=== PATIENT | male | born 1960 | race Caucasian/White ===

== ENCOUNTER 2018-07-02 14:19 | Inpatient (IN) | payer MEDICAID ==
[~2018-07-02] VITALS: Ht 165.1 cm; Wt 93.2 kg
[2018-07-02] MEDS ORDERED: TYLENOL325 MG PO (15:03)
[2018-07-02] MEDS ORDERED: AUGMENTIN 875-1 EACH PO (15:05)
[2018-07-02] MEDS ORDERED: ASPIRIN81 M2 PO (15:07)
[2018-07-02] MEDS ORDERED: PLAVIX 75 MG TA75 MG PO (15:08)
[2018-07-02] MEDS ORDERED: TRICOR145 MG PO (15:11)
[2018-07-02] MEDS ORDERED: ZETIA10 MG PO (15:11)
[2018-07-02] MEDS ORDERED: NORCO 5-325 TA1 EACH PO (15:15)
[2018-07-02] MEDS ORDERED: LOPRESSOR100 M1 PO (15:28)
[2018-07-02] MEDS ORDERED: PRILOSEC 20 MG20 MG PO (15:30)
[2018-07-02 17:13] VITALS: BP 114/77
--- NOTE | 2018-07-02 18:35 | NUR ---
PT. ARRIVED PER W/C MELIZA AT 1713 TO REHAB UNIT [id number]. ALERT ORIENTED BUT DOES HAVE SOME COGNITION ISSUES HX OF VENTRICULOPERITONEAL SHUNT. BLIND RT. EYE AFTER SHUNT PLACEMENT PER PARENTS. REPORT. 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 HAS A CARDIAC HUGGER VEST ON. STERNAL INCISION C/D/I. PT. TRANSFERS WITH 1 ASSIST G BELT WALKER BUT IS ON STERNAL PRECAUTIONS AND NEEDS REMINDERS TO [place] WITH TRANSFERS NOT USE ARMS TO PUSH UP. PLEASANT COOPERATIVE. ABLE TO ANSWER MOST OF THE QUESTIONS PARENTS WITH HIM IN ROOM. ORIENTED TO ROOM AND REHAB ROUTINE. SUPPER HERE AND PT. IS ABLE TO FEED SELF. CHAIR ALARM PLACED IN CHAIR AND CALL LIGHT EXPLAINED.
[2018-07-02 20:00] VITALS: BP 126/77
[2018-07-03 04:12] LABS: HEMATOCRIT 29.6 % (42.0-52.0); HEMOGLOBIN 10.1 gm/dL (14.0-18.0); MCH 31.7 pg (26.0-34.0); MCHC 34.1 g/dL (28.0-37.0); MCV 92.8 fL (80.0-100.0); MPV 6.9 fl. (7.2-11.1); RBC 3.18 mil/uL (4.50-6.00); RDW-CV 14.7 % (10.5-14.5); WBC 10.5 thou/uL (4.0-11.0)
[2018-07-03 04:31] LABS: CALCIUM 9.6 mg/dL (8.5-10.1); CREATININE 0.9 mg/dL (0.6-1.3); POTASSIUM 3.8 mmol/L (3.5-5.1)
--- NOTE | 2018-07-03 05:56 | NUR ---
ASSUMED CARE AT 1920. S/P CABG X 3. ALERT AND ORIENTED X 2. HAS BEEN CONFUSED AND FORGETFUL AT TIMES. IMPULSIVE. PT EDUCATED ABOUT NOT GETTING UP BY HIMSELF BUT WOULD DO SO ANYWAYS. NEEDS REMINDING TO ABOUT STERNAL PRECAUTIONS. MIDSTERNAL INCISION IS WELL APPROXIMATED AND LIQUID LOADER. HAS HEART HUGGER BUT REFUSED TO WEAR IT WHEN IN BED. MIN ASSIST WITH GAIT BELT AND WALKER. URINAL AT BEDSIDE AND PT INSTRUCTED TO USE BUT PT HAD URINARY INCONTINENCE ALL NIGHT. SLEPT LITTLE OFF AND ON. CALL LIGHT IN REACH AND BED ALARM ON.
[2018-07-03 07:37] VITALS: BP 122/79
--- NOTE | 2018-07-03 14:15 | NUR ---
PATIENT IS ALERT AND ORIENTED X 2-3, HE ATE IN THE MAIN DINNING AREA WITH HIS PARENTS. CONT. TO PARTICIPATE IN PT/OT. DENIES COMPLAINTS OF PAIN OR DISCOMFORT. NO SIGN OF DISTRESS. CONT. WITH CURRENT PLAN OF CARE.
--- NOTE | 2018-07-03 16:57 | NUR ---
SW met with pt to complete initial assessment, introduce self, and SW role on inpt rehab unit. Pt said he does not understand why he "has to be here". SW explained purpose of inpt rehab and therapies; pt said he feels he is ready to go home. Pt said that he was independent and did not need cane or RW or anything. Pt wants to dc ward. Pt said his parents visited him today but he did not understand why "maybe they want to keep" pt here. SW to continue to follow to assist with safe dc planning.
--- NOTE | 2018-07-03 18:38 | NUR ---
ALERT AND ORIENTED X 2-3. MOVED TO 321 WHICH IS CLOSER TO THE NURSING STATION. EARLIER TODAY PATIENT WAS UP AD SANDY IN ROOM. ENCOURAGE USE OF CALL LIGHT. PATIENT ASKED DR ROCHA TO DISCHARGE HIM. DR ROCHA TOLD PATIENT WOULD DISCUSS IN TEAM MEETING TOMORROW.
[2018-07-03 19:00] VITALS: BP 104/64
--- NOTE | 2018-07-03 19:40 | NUR ---
SITTING UP IN RECLINER WATCHING WRESTLING ON TV. DENIES DISCOMFORT. DECLINED OFFER OF A SNACK. STERNAL INCISION DIVISION CONTROLLER, WELL APPROXIMATED.
--- NOTE | 2018-07-04 05:22 | NUR ---
RESTED QUIETLY. NO COMPLAINTS VOICED. INCONTINENT OF URINE. GALI CARE GIVEN. HOURLY ROUNDING IN PROGRESS.
[2018-07-04 08:00] VITALS: BP 125/81
--- NOTE | 2018-07-04 12:56 | NUR ---
Nutrition: Pt admitted CABG X3. RD spoke with pt's parents yday about heart healthy diet. Mother stated she would be cooking for the pt temproarily while he stays with them "after this heart attack." +BM yday. Wt: 220#. Meal intake is fair. H/o DM, CAD, OBE, HTN, GERD. CHO controlled diet. Low risk. Will follow weekly.
--- NOTE | 2018-07-04 15:55 | NUR ---
SW met with pt and pt parents to review team conference summary and plan for pt to remain on rehab unit with team to reassess pt length of stay during team conference next Monday. Pt was disappointed but pt parents encouraged pt to continue therapies. Pt parents stated that pt would stay with them a couple of weeks at dc. SW to continue to follow to assist with safe dc planning.
--- NOTE | 2018-07-04 16:31 | NUR ---
PATIENT UP WITH ROLLING WALKER, SBA, DOES REQUIRE LIMITED ASSIST WITH STANDING. HE GOES TO THE MAIN DINE AREA FOR ALL MEALS. PARENTS ARE HERE NOW VISITING. PATIENT IS WITHOUT COMPLAINTS. NO SIGN OF DISTRESS. CONT. WITH CURRENT PLAN OF CARE AT THIS TIME.
[2018-07-04 19:00] VITALS: BP 129/78
--- NOTE | 2018-07-04 20:05 | NUR ---
SITTING UP IN WHEELCHAIR. DENIES DISCOMFORT. DECLINED OFFER OF A SNACK. COMPLAINED OF BEING TIRED AND TRANSFERRED TO BED WITH SBA, GAITBELT, WALKER, STERNAL PRECAUTIONS AND CUEING. HAS BRIEFS ON.
--- NOTE | 2018-07-05 06:38 | NUR ---
RESTED QUIETLY. NO COMPLAINTS VOICED. WHEN WANTS ASSIST WITH URINAL YELLS OUT FOR HELP INSTEAD OF USING THE CALL LIGHT. EDUCATED PATIENT ON USE OF THE CALL LIGHT AT BEDTIME TO NO AVAIL. HOURLY ROUNDING IN PROGRESS.
[2018-07-05 08:00] VITALS: BP 128/69
--- NOTE | 2018-07-05 15:05 | NUR ---
ASSUMMED CARE OF PT AT 0730, PT ALERT AND ORIENTED, PT TRANSFERS WITH MIN TO SBA GB WALKER CUEING, PT COMPLAINS OF CHEST ACHINESS AROUND INCISION SITE, MEDICATED PER ORDER, INCISION C/D/I, PT VOIDS PER URINAL, AMBULATED TO DININGROOM FOR LUNCH, TAKING FOOD AND FLUIDS WELL, PARTICIPATED IN ALL THERAPIES,STERNAL PRECAUTIONS MAINTAINED, HOURLY ROUNDING COMPLETED, ASSESSMENT COMPLETE, WILL CONTINUE TO MONITOR.
[2018-07-05 19:18] VITALS: BP 137/80
[2018-07-05 21:00] VITALS: BP 162/53
[2018-07-06 04:11] LABS: CALCIUM 9.3 mg/dL (8.5-10.1); CREATININE 0.9 mg/dL (0.6-1.3); POTASSIUM 4.2 mmol/L (3.5-5.1)
--- NOTE | 2018-07-06 05:00 | NUR ---
ASSUMED CARE OF PT AT 1900 PT ALERT AND ORIENTED VSS. PT CONTINUES ON STERNAL PRECAUTIONS. PT AMBULATED TO THE BATHROOM WITH SUPERVISION AND GB AND WALKER. PT DENIED ANY COMPLAINTS AND SLEPT THROUGH THE NIGHT. WILL CONTINUE PLAN OF CARE.
[2018-07-06 07:15] VITALS: BP 126/76
--- NOTE | 2018-07-06 15:45 | NUR ---
ASSUMED CARE AT 0730. ALERT ORIENTED PLEASANT COOPERATIVE. HX OF CABG X 3. STERNAL PRECAUTIONS IN PLACE INCISION HEALING. MEDICATED X 1 WITH TYLENOL WITH A.M. MEDS BEFORE THERAPIES. TRANSFERS WITH SBA G BELT WEARS CARDIOHUGGER PARTICIPATING IN THERAPIES THROUGHOUT THE DAY. FEEDS SELF TAKES MEDS WITHOUT DIFFICULTY APPETITE GOOD. SITTING UP IN RECLINER WHEN NOT WITH THERAPIES, HAS CHAIR ALARM FOR SAFETY.
[2018-07-06 19:50] VITALS: BP 116/74
--- NOTE | 2018-07-06 20:30 | NUR ---
RESTING IN BED. COMPLAINING OF A PERSISTENT COUGH AND A SORE THROAT. STERNAL INCISION HEALING, MING. TOOK MEDICATIONS WHOLE WITH WATER.
--- NOTE | 2018-07-07 05:39 | NUR ---
PATIENT GIVEN COUGH SYRUP FOR COMPLAINT OF COUGHING WITH GOOD RESULTS. NO FURTHER COMPLAINT OF A SORE THROAT. SLEPT SOUNDLY FOR A FEW HOURS AND THEN WAS AWAKE FOR MOST OF THE NIGHT. VOIDED ON THE FLOOR. REORIENTED THE PATIENT ON THE USE OF THE CALL LIGHT AND TO CALL FOR ASSIST WITH THE URINAL. PATIENT STILL DOESN'T USE THE CALL LIGHT. YELLED OUT LATER IN THE SHIFT FOR ASSIST WITH THE URINAL. HOURLY ROUNDING IN PROGRESS.
[2018-07-07 07:15] VITALS: BP 127/78
--- NOTE | 2018-07-07 16:14 | NUR ---
ASSUMMED CARE OF PT AT 0730, PT ALERT AND ORIENTED, TRANSFERS WITH SBA,GB WALKER, NEEDS CUEING AND TO REMEMBER STERNAL PRECAUTIONS, INCISION C/D/I, TAKING FOOD AND FLUIDS WELL, DENIES PAIN, AMBULATED TO DININGROOM FOR LUNCH, PT STATES HE HAD A BM YESTERDAY AND REFUSED HIS COLACE TODAY, VOIDS PER TOILET, PARTICIPATED IN ALL THERAPIES, HOURLY ROUNDING COMPLETED, ASSESSMENT COMPLETE, WILL CONTINUE TO MONITOR.
--- NOTE | 2018-07-07 19:40 | NUR ---
SITTING UP IN RECLINER WATCHING TV. AMBULATED TO THE BATHROOM WITH SBA, GAITBELT, WALKER. DENIES DISCOMFORT. TOOK MEDICATIONS WHOLE WITH WATER.
[2018-07-07 20:00] VITALS: BP 131/83
--- NOTE | 2018-07-08 05:57 | NUR ---
RESTED ON/OFF. WOKE UP AND WASHED TV FOR A FEW HOURS AND THEN FELL BACK TO SLEEP. USED CALL LIGHT APPROPRIATLE X 2 TO CALL STAFF TO COME EMPTY HIS URINAL. HOURLY ROUNDING IN PROGRESS.
[2018-07-08 08:00] VITALS: BP 133/84; BP 133/89
--- NOTE | 2018-07-08 15:26 | NUR ---
ASSUMMED CARE OF PT AT 0730, PT ALERT AND ORIENTED, SLOW AT TIMES, TRANSFERS WITH SBA GB WALKER, NEEDS CUEING TO MAINTAIN STERNAL PRECAUTIONS WHEN GOING FROM SIT TO STAND, AMBULATED TO DININGROOM FOR LUNCH, PT DENIES PAIN, INCISION C/D/I, TAKING FOOD AND FLUIDS WELL, DID PARTIAL BATH, GROOMING AT SINK, HOURLY ROUNDING COMPLETE, ASSESSMENT COMPLETE, WILL CONTINUE TO MONITOR.
[2018-07-08 19:00] VITALS: BP 120/80
--- NOTE | 2018-07-08 19:45 | NUR ---
SITTING UP IN RECLINER WATCHING TV. DENIES DISCOMFORT. TRANSFERRED FROM CHAIR TO BED WITH SBA, GAITBELT, WALKER, CUES. TOOK MEDICATIONS WHOLE WITH WATER.
--- NOTE | 2018-07-09 05:23 | NUR ---
RESTED QUIETLY. GAVE TYLENOL AT 2144 FOR COMPLAINT OF SORE THROAT WITH SOME RELIEF. UP TO THE BATHROOM AT 2330 AND HAD A LARGE FORMED BM. HOURLY ROUNDING IN PROGRESS.
[2018-07-09 08:00] VITALS: BP 127/83
[2018-07-09 14:09] LABS: CALCIUM 9.3 mg/dL (8.5-10.1); MAGNESIUM 1.5 mg/dL (1.8-2.4); POTASSIUM 4.2 mmol/L (3.5-5.1)
--- NOTE | 2018-07-09 15:10 | NUR ---
ASSUMMED CARE OF PT AT 0730, PT ALERT AND ORIENTED, PT TRANSFERS WITH SBA, GB WALKER CUEING, DENIES PAIN, NEEDS CUEING AT TIMES TO MAINTAIN STERNAL PRECAUTIONS, STERNAL INCISION C/D/I, AMBULATED TO DININGROOM, TAKING FOOD AND FLUIDS WELL, VOIDS PER TOILET, PARTICIPATED IN ALL THERAPIES, HOURLY ROUNDING COMPLETED, ASSESSMENT COMPLETE, WILL CONTINUE TO MONITOR.
[2018-07-09 19:30] VITALS: BP 136/84
--- NOTE | 2018-07-09 19:35 | NUR ---
SITTING UP IN RECLINER WATCHING WRESTLING ON TV. IN GOOD SPIRITS. LOVES TO WATCH WRESTLING. DENIES DISCOMFORT. CALL LIGHT AND URINAL WITHIN REACH.
--- NOTE | 2018-07-10 05:07 | NUR ---
RESTED ON/OFF. AWAKE PART OF THE NIGHT WATCHING TV. ASSISTED WITH URINAL X 2. SOMETIMES YELLS OUT FOR ASSISTANCE. SOMETIMES USES THE CALL LIGHT APPROPRIATELY. HOURLY ROUNDING IN PROGRESS.
[2018-07-10 08:00] VITALS: BP 107/50
--- NOTE | 2018-07-10 18:22 | NUR ---
PT HAS BEEN PLEASANT AND COOPERATIVE, PARTICIPATED WITH ALL THERAPIES AND HAS BEEN USING THE CALL LIGHT RATHER THAN YELLING OUT. PT IS AMBULATORY WITH A WALKER AND SUPERVISION, ATTENDS MEALS IN THE DINING ROOM AND INTERACTS WELL WITH OTHERS. MAGNESIUM REPLACED PER ELECTROLYTE PROTOCOL AND WILL BE CHECKED WITH THE AM LABS. FALL PRECAUTIONS AND HOURLY ROUNDING CONTINUED.
[2018-07-10 19:56] VITALS: BP 125/75
--- NOTE | 2018-07-11 00:35 | NUR ---
ASSUMED CARE AT 1930. PATIENT RESTED IN RECLINER UNTIL AROUND 2029. UP WITH SBA, GAIT BELT, MAINTAINS STERNAL PRECAUTIONS WITH CUEING. STAND PIVOT. TAKES PILLS WHOLE WITH WATER. STERNAL PRECAUTIONS CONTINUE. VOIDS PER URINAL. INCISIONS DIRECTOR CHANNEL, C/D/I. GIVEN MAGNESIUM 800 MG PER PROTOCOL, NEW LABS ORDERED PER PROTOCOL. NO C/O PAIN. HOURLY ROUNDS CONTINUE. BED ALARM ON. CALL LITE IN REACH.
--- NOTE | 2018-07-11 05:51 | NUR ---
RESTED QUITELY MOST OF THE NIGHT. VOIDED PER URINAL, USED CALL LITE AT TIMES. TURNS SELF. NO C/O PAIN. HOURLY ROUNDS CONTINUE. BED ALARM ON. CALL LITE IN REACH.
[2018-07-11 08:01] VITALS: BP 137/85
--- NOTE | 2018-07-11 17:10 | NUR ---
AM ASSESSMENT AND VITAL SIGNS COMPLETED DOCUMENTED. PT CONTINUES TO WORK WITH ALL THERAPIES AND IS PLEASANT AND INTERACTIVE WITH STAFF AND THE OTHER PATIENTS. PT TAKES HIS MEDICATIONS WITHOUT DIFFICULTY, APPETITE HAS BEEN GOOD, NO C/O PAIN OR DISCOMFORT. FALL PRECAUTIONS AND HOURLY ROUNDING CONTINUE.
--- NOTE | 2018-07-11 19:45 | NUR ---
SITTING UP IN RECLINER. TV IS OFF. PATIENT STATES NOTHING HE WANTS TO WATCH AND THAT HE IS READY FOR BED. TRANSFERRED TO BED WITH SBA, GAITBELT, WALKER. DENIES DISCOMFORT. URINAL AND CALL LIGHT WITHIN REACH. MIDSTERNAL INCISION MING AND ALMOST HEALED.
[2018-07-11 20:05] VITALS: BP 114/81
--- NOTE | 2018-07-12 05:24 | NUR ---
RESTED ON/OFF. DECLINED OFFER OF A PRN SLEEP MED. WAKES UP AT TIMES AND WATCHES TV FOR AWHILE AND THEN GOES BACK TO SLEEP. DENIES DISCOMFORT. COMPLAINS OF BEING BORED. HOURLY ROUNDING IN PROGRESS.
[2018-07-12 08:00] VITALS: BP 126/81
--- NOTE | 2018-07-12 09:44 | NUR ---
SW met with pt to review team conference summary and plan to reteam; team will reassess pt length of stay during team conference next Tuesday 07/18. Pt was hopeful and eager to be able to dc soon, but understanding of reasoning to continue therapies to make progress towards mod I goals. SW called pt parents who did not answer so SW left message providing details of reteam. SW to continue to follow to assist with safe dc planning. Pt plans to dc to parents' home for a couple weeks at time of dc.
--- NOTE | 2018-07-12 19:35 | NUR ---
AWAKENED FOR HS REASSESSMENT. DENIES DISCOMFORT. CALL LIGHT AND URINAL WITHIN REACH.
[2018-07-12 19:59] VITALS: BP 121/68
--- NOTE | 2018-07-13 05:03 | NUR ---
RESTED ON/OFF. INCONTINENT OF URINE FIRST TIME WOKE UP REQUIRING CLOTHES TO BE REMOVED AND A PARTIAL LINEN CHANGE. WASHED PATIENT WITH SOAP AND WATER AND PLACED A HOSPITAL GOWN ON. AFTERWARDS PATIENT USED THE URINAL. STAYED UP AND WATCHED TV FOR AWHILE AND THEN RETURNED TO SLEEP. HOURLY ROUNDING IN PROGRESS.
[2018-07-13 09:06] VITALS: BP 147/85
--- NOTE | 2018-07-13 15:07 | NUR ---
ASSUMMED CARE OF PT AT 0730, PT ALERT AND ORIENTED, TRANSFERS WITH SBA, GB WALKER,NEEDS CUEING TO MOVE TO RIGHT AT TIMES WHEN AMBULATING, AMBULATED TO DININGROOM, TAKING FOOD AND FLUIDS WELL, PT COMPLAINS OF HEADACHE, MEDICATED PER ORDER WITH GOOD RELIEF, VOIDS PER TOILET, PARTICIPATED IN ALL THERAPIES, HOURLY ROUNDING COMPLETED, ASSESSMENT COMPLETE, WILL CONTINUE TO MONITOR.
[2018-07-13 20:04] VITALS: BP 134/79
--- NOTE | 2018-07-14 05:36 | NUR ---
ASSUMED PT CARE AT 1930. PT ALERT AND ORIENTED TO PERSON AND PLACE, SOME COGNITIVE DEFICITS AND FORGETFULNESS. UP WITH ONE, MODERATE ASSIST, GAIT BELT, AND WALKER. NO COMPLAINTS OF PAIN. USES URINAL OVERNIGHT, CALLS OUT FOR ASSIST. HOURLY ROUNDING IN PROGRESS, WILL CONTINUE TO MONITOR.
[2018-07-14 07:52] VITALS: BP 142/71
--- NOTE | 2018-07-14 17:01 | NUR ---
AM ASSESSMENT AND VITAL SIGNS COMPLETED DOCUMENTED. PT HAS BEEN PLEASANT AND COOPERATIVE, USES THE CALL LIGHT OR YELLS OUT FOR HELP. PT AMBULATES TO THE DINING ROOM WITH A WALKER AND SUPERVISION. NO C/O PAIN OR DISCOMFORT THIS SHIFT. FALL PRECAUTIONS AND HOURLY ROUNDING CONTINUE.
[2018-07-14 20:01] VITALS: BP 138/80
--- NOTE | 2018-07-15 05:17 | NUR ---
ASSUMED PT CARE AT 1930. PT ALERT AND ORIENTED TO PERSON AND PLACE, SOME COGNITIVE DEFICITS AND FORGETFULESS. UP WITH ONE, MODERATE ASSIST, GAIT BELT AND WALKER. NO COMPLAINTS OF PAIN. NO STOOL THIS SHIFT. USES URINAL OVERNIGHT, USES CALL LIGHT OR SOMETIMES CALLS OUT FOR ASSIST. HOURLY ROUNDING IN PROGRESS, WILL CONTINUE TO MONITOR.
[2018-07-15 08:00] VITALS: BP 160/95
[2018-07-15 19:56] VITALS: BP 140/77
--- NOTE | 2018-07-15 23:05 | NUR ---
ASSUMED CARE AT 1930. PATIENT RESTED IN RECLINER UNTIL AROUND 2099. UP WITH SBA, GAIT BELT, WALKER. STERNAL INCISION C/D/I AND WORLD HISTORY TEACHER. TAKES PILLS WHOLE WITH WATER. VOIDS PER URINAL AT [facility]. HOURLY ROUNDS CONTINUE. BED ALARM ON. CALL LITE IN REACH.
[2018-07-16 04:16] LABS: HEMATOCRIT 35.3 % (42.0-52.0); HEMOGLOBIN 12.3 gm/dL (14.0-18.0); MCH 32.1 pg (26.0-34.0); MCHC 34.9 g/dL (28.0-37.0); MCV 91.9 fL (80.0-100.0); MPV 7.3 fl. (7.2-11.1); RBC 3.84 mil/uL (4.50-6.00); RDW-CV 15.2 % (10.5-14.5); WBC 6.7 thou/uL (4.0-11.0)
[2018-07-16 04:28] LABS: CALCIUM 9.2 mg/dL (8.5-10.1); CREATININE 0.8 mg/dL (0.6-1.3); MAGNESIUM 1.7 mg/dL (1.8-2.4); POTASSIUM 4.1 mmol/L (3.5-5.1)
--- NOTE | 2018-07-16 06:25 | NUR ---
SLEPT MOST OF THE NIGHT EXCEPT TO VOID. VOIDS PER URINAL. NO C/O PAIN. TURNS SELF. MG 1.7. GIVEN 800 MG MAG OX PER PROTOCOL AT 0615. HOURLY ROUNDS CONTINUE. BED ALARM ON. CALL LITE IN REACH.
[2018-07-16 08:00] VITALS: BP 148/88
--- NOTE | 2018-07-16 15:23 | NUR ---
ASSUMMED CARE OF PT AT 0730, PT ALERT AND ORIENTED, PT TRANSFERS WITH ASSIST OF 1, GB WALKER CUEING, PT NEEDS CUEING AT TIMES TO REMEMBER STERNAL PRECAUTION, CHEST INCISION HEALED, DENIES PAIN, TAKING FOOD AND FLUIDS WELL, MG 1.7 THIS AM, REPLACED PER PROTOCAL, AMBULATED TO DININGROOM FOR LUNCH, PARTICIPATED IN ALL THERAPIES, HOURLY ROUNDING COMPLETED, ASSESSMENT COMPLETE, WILL CONTINUE TO MONITOR.
[2018-07-16 19:30] VITALS: BP 120/75
--- NOTE | 2018-07-17 05:10 | NUR ---
ASSUMED PT CARE AT 1930. PT ALERT AND ORIENTED. TRANSFERS WITH ASSIST OF ONE, GAIT BELT, WALKER AND CUEING. STERNAL PRECUATIONS, CHEST INCISION HEALED. PT DENIES PAIN. PT VOIDED PER URINAL NUMEROUS TIMES OVERNIGHT. MG REPLACED PER PROTOCOL, 1.6 THIS AM. USES CALL LIGHT APPROPRIATELY. CALL LIGHT AND FREQUENTLY USED ITEMS WITHIN REACH. HOURLY ROUNDING IN PROGRESS, WILL CONTINUE TO MONITOR.
[2018-07-17 07:15] VITALS: BP 124/71
[2018-07-17 08:00] VITALS: BP 124/71
--- NOTE | 2018-07-17 09:52 | NUR ---
SW received call from pt mother who explained that she will plan to reschedule pt PCP appt that was for tomorrow. SW discussed that team conference will be held tomorrow and a dc date may be determined. Pt mother did not have any questions or concerns at this time. SW to continue to follow to assist with safe dc planning.
--- NOTE | 2018-07-17 16:57 | NUR ---
PATIENT IS ALERT AND ORIENTED TODAY VERY PLEASANT. UP WITH STAND BY, GAIT BELT AND WALKER. NO COMPLAINTS OF ANY KIND TODAY. VITAL SIGNS ARE STABLE ON ROOM AIR. CALL LIGHT IS IN REACH, BED AND CHAIR ALARM ARE BEING USED PATIENT CALLS FOR WHEN NEEDED. WILL CONTINUE TO MONITOR.
[2018-07-17 19:36] VITALS: BP 132/77
--- NOTE | 2018-07-18 05:13 | NUR ---
ASSUMED PT CARE AT 1930. PT ALERT AND ORIENTED, POLITE AND COOPERATIVE WITH CARES. PT EVACUATED TO INTERIOR HALLWAY AT BEGINNING OF SHIFT FOR [place] WARNING PER HOSPITAL PROTOCOL. TRANSFERS WITH ASIST OF ONE, GAIT BLET, WALKER AND CUEING. STERNAL PRECAUTIONS, CHEST INCISION HEALED. PT DENIES PAIN. PT VOIDED PER URINAL OVERNIGHT, STAFF EMPTIED. LARGE STOOL THIS SHIFT. CALL LIGHT WITHIN REACH. HOURLY ROUNDING IN PROGRESS, WILL CONTINUE TO MONITOR.
[2018-07-18 07:00] VITALS: BP 132/78
--- NOTE | 2018-07-18 13:30 | NUR ---
NORAH and Dr Nunez met with pt after team conference and reviewed team conference summary and plan for pt to dc home with parents on Thursday 07/20. NORAH called pt parents phone to review team conference and dc plan but no answer. SW to continue to follow to assist with safe dc planning and to make sure pt has rolling walker at home as well as arrange HH RN if needed, pt has Medicaid so no HH therapy benefits at dc.
--- NOTE | 2018-07-18 17:16 | NUR ---
AM ASSESSMENT AND VITAL SIGNS COMPLETED DOCUMENTED. PT HAS BEEN PLEASANT AND COOPERATIVE, DISCHARGE GOALS HAVE BEEN MET. NO C/O DISCOMFORT THIS SHIFT. FALL PRECAUTIONS AND HOURLY ROUNDING CONTINUE.
[2018-07-18 20:00] VITALS: BP 117/77
--- NOTE | 2018-07-18 21:35 | NUR ---
INITAL ASSESMENT COMPLETED AT 1930. PT UP IN RECLINER AT THAT TIMER. DISCUSSED MEDICATIONS AND PLAN OF CARE. PT IN BED AT THIS TIME. CALL LIGHT IN REACH, PT DEMONSTRATES PROPER USE. BED ALARM ON, PT CLOSE TO NURSES STATION, FREQUENT VISUAL CHECKS DONE.
[2018-07-19 04:18] LABS: CALCIUM 8.9 mg/dL (8.5-10.1); CREATININE 0.7 mg/dL (0.6-1.3); POTASSIUM 3.8 mmol/L (3.5-5.1)
--- NOTE | 2018-07-19 05:30 | NUR ---
pt awake throughout entire shift. pt drinking large amounts of water and voiding large amounts of urine. pt calling out frequently throughout night.
[2018-07-19 08:00] VITALS: BP 127/72
[2018-07-19 08:52] VITALS: BP 127/72
--- NOTE | 2018-07-19 12:29 | NUR ---
SW received call from pt mother stating that they do not need SW to arrange for order of RW, they have one that they are able to provide to pt to use. Plan for pt to dc tomorrow to home with parents. No other needs expressed.
--- NOTE | 2018-07-19 18:29 | NUR ---
PT WORKED WITH ALL THERAPIES TODAY, NO C/O DISCOMFORT. PT HAS BEEN COMPLIANT WITH THE STERNAL PRECAUTIONS, INCISION REMAINS WELL HEALED. PT IS EXCITED TO BE GOING HOME TOMMORROW. FALL PRECAUTIONS AND HOURLY ROUNDING CONTINUE.
[2018-07-19 20:00] VITALS: BP 118/76
[2018-07-19 23:13] VITALS: BP 118/76
[2018-07-19] MEDS ORDERED: PRINIVIL10 MG PO (23:23)
[2018-07-19] MEDS ORDERED: MAGOX 400400 MG PO (23:24)
[2018-07-20 03:32] LABS: ABSOLUTE BASOPHILS 0.2 thou/uL (0.0-0.2); ABSOLUTE EOSINOPHILS 0.5 thou/uL (0.0-0.7); ABSOLUTE LYMPHOCYTES 1.9 thou/uL (0.8-5.3); ABSOLUTE MONOCYTES 0.5 thou/uL (0.0-1.2); ABSOLUTE NEUTROPHILS 3.5 thou/uL (1.6-8.1); BASOPHILS 2.3 %; EOSINOPHILS 8.3 %; HEMATOCRIT 37.4 % (42.0-52.0); HEMOGLOBIN 12.6 gm/dL (14.0-18.0); LYMPHOCYTES 28.3 %; MCH 31.4 pg (26.0-34.0); MCHC 33.7 g/dL (28.0-37.0); MONOCYTES 8.4 %; MPV 7.3 fl. (7.2-11.1); NUCLEATED RBCS 0 /100WBC; PLATELET COUNT* 276 thou/uL (150-400); POLYS 52.7 %; RBC 4.02 mil/uL (4.50-6.00); RDW-CV 15.7 % (10.5-14.5); WBC 6.6 thou/uL (4.0-11.0)
[2018-07-20 03:44] LABS: CALCIUM 9.2 mg/dL (8.5-10.1); CREATININE 0.9 mg/dL (0.6-1.3); MAGNESIUM 1.8 mg/dL (1.8-2.4); POTASSIUM 4.1 mmol/L (3.5-5.1)
--- NOTE | 2018-07-20 05:23 | NUR ---
ASSUMED CARES AT 1920. ALERT AND ORIENTED. PLEASANT. DENIED ANY PAIN. SBA WITH GAIT BELT AND WALKER. UP TO BATHROOM OR USES URINAL. SLEPT OFF AND ON. CALL LIGHT IN REACH AND BED ALARM ON.
[2018-07-20 08:10] VITALS: BP 127/76
[2018-07-20 08:58] VITALS: BP 127/76
--- NOTE | 2018-07-20 13:36 | NUR ---
Pt to dc home with parents today. Pt parents to provide transportation home. Pt has rolling walker and no HH needs as he has Medicaid that does not cover HH therapies. No other dc needs expressed.
--- NOTE | 2018-07-20 13:58 | NUR ---
AM ASSESSMENT AND VITAL SIGNS COMPLETED DOCUMENTED. PT HAS COMPLETED HIS THERAPY SESSIONS AND IS WAITING FOR HIS PARENTS TO PICK HIM UP.
--- NOTE | 2018-07-20 14:55 | NUR ---
DISCHARGE INSTRUCTIONS PROVIDED TO PT AND HIS PARENTS. PT AND HIS BELONGINGS TRANSPORTED TO EXIT, ASSISTED INTO CAR, DISCHARGED HOME IN STABLE CONDITION.
== END 2018-07-20 14:56 | disposition home or self-care (01) | DRG 303 ==
LOC: M.REH 14:19
PROVIDERS: Family Medicine; Internal Medicine; ADMIT Physical Medicine & Rehabilitation
DX: I25.10 Atherosclerotic heart disease of native coronary artery without angina pectoris (principal); E11.9 Type 2 diabetes mellitus without complications; I10 Essential (primary) hypertension; E66.9 Obesity, unspecified; E78.5 Hyperlipidemia, unspecified; I48.0 Paroxysmal atrial fibrillation; H54.61 Unqualified visual loss, right eye, normal vision left eye; D64.9 Anemia, unspecified; E83.42 Hypomagnesemia; K21.9 Gastro-esophageal reflux disease without esophagitis; I25.5 Ischemic cardiomyopathy; Z95.1 Presence of aortocoronary bypass graft; Z98.2 Presence of cerebrospinal fluid drainage device; Z82.49 Family history of ischemic heart disease and other diseases of the circulatory system; Z83.3 Family history of diabetes mellitus; Z68.34 Body mass index [BMI] 34.0-34.9, adult